=== PATIENT | male | born 1965 | race Caucasian/White ===

== ENCOUNTER → 2016-12-08 | Outpatient (CLI) | payer OTHER ==
[~2016-12-08] VITALS: Ht 177.8 cm; Wt 93.0 kg
[~2016-12-08] MED LIST: INDOCIN25 MG PO; MOBIC7.5 MG PO; MOTRIN600 MG PO; NOHOMEMEDS; NORCO 5/3251 TABLET PO; NORCO 7.5/321 TABLET PO
== END | disposition home or self-care (01) ==
LOC: AMB 12-05 08:30
DX: Z12.11 Encounter for screening for malignant neoplasm of colon (principal); Z86.010 Personal history of colon polyps; Z80.0 Family history of malignant neoplasm of digestive organs; D12.3 Benign neoplasm of transverse colon; K62.1 Rectal polyp
CPT/HCPCS: 88305; J2250; J3010

== ENCOUNTER 2017-11-10 05:41 | Day surgery (SDC) | payer OTHER ==
[~2017-11-10] VITALS: Ht 180.3 cm; Wt 95.2 kg
[~2017-11-10 05:41] MED LIST changes: +CENTRUM SILVER1 EAC3 PO; +CO Q-10200 MG PO; +FLOMAX0.4 MG PO; +GLUCOSAMINE &1 EAC1 PO
[2017-11-10 07:01] VITALS: BP 147/85
[2017-11-10] MEDS ORDERED: ULTRAM50 MG PO (09:17)
[2017-11-10 10:48] VITALS: BP 112/63
[2017-11-10 11:35] VITALS: BP 110/60
== END 2017-11-10 14:14 | disposition home or self-care (01) ==
LOC: SDC 05:41
PROC: 0WUF4JZ Supplement Abdominal Wall with Synthetic Substitute, Percutaneous Endoscopic Approach (ICD-10-PCS; principal; 2017-11-10)
DX: K42.0 Umbilical hernia with obstruction, without gangrene (principal); Z86.010 Personal history of colon polyps; Z83.3 Family history of diabetes mellitus; Z82.49 Family history of ischemic heart disease and other diseases of the circulatory system; Z80.0 Family history of malignant neoplasm of digestive organs
CPT/HCPCS: C1781; J0330; J0690; J1100; J1170; J1885; J2001; J2250; J2405; J2710; J2795; J3010; J3475